=== PATIENT | female | born 1970 | race African-American/Black ===

== ENCOUNTER 2016-07-30 11:45 | Emergency (ER) | payer MEDICAID ==
[~2016-07-30] VITALS: Ht 160 cm; Wt 62.0 kg
[2016-07-30] MEDS ORDERED: MORPHINE SULFATE 4 MG/ML CPJ (NOT FOR IM USE) IV ONE ×2 (14:00→15:30)
[2016-07-30] MEDS ORDERED: ONDANSETRON HCL 4MG/2ML VIAL IV ONE (14:00)
[2016-07-30 15:33] VITALS: BP 170/115
== END 2016-07-30 16:49 | disposition home or self-care (01) ==
LOC: ER 13:46
DX: S49.91XA Unspecified injury of right shoulder and upper arm, initial encounter (principal); S89.91XA Unspecified injury of right lower leg, initial encounter; R51 Headache; I10 Essential (primary) hypertension; F32.9 Major depressive disorder, single episode, unspecified; F12.10 Cannabis abuse, uncomplicated; F17.200 Nicotine dependence, unspecified, uncomplicated; V89.2XXA Person injured in unspecified motor-vehicle accident, traffic, initial encounter; Y93.89 Activity, other specified; Y99.8 Other external cause status; Y92.89 Other specified places as the place of occurrence of the external cause
CPT/HCPCS: 70486; 73030; 73130; 73562; 81025; 96374; 96375; 96376; 99284; J2270; J2405

== ENCOUNTER 2017-06-08 12:43 | Emergency (ER) | payer MEDICAID ==
[~2017-06-08] VITALS: Ht 157.5 cm; Wt 59.0 kg
[2017-06-08] MEDS ORDERED: CYCLOBENZAPRINE 10MG TABLET PO ONE (18:45)
[2017-06-08] MEDS ORDERED: KETOROLAC 60MG/2ML VIAL IM ONE (18:45)
[2017-06-08 18:54] VITALS: BP 129/74
== END 2017-06-08 19:05 | disposition home or self-care (01) ==
LOC: ER 14:29
DX: M25.511 Pain in right shoulder (principal); M54.2 Cervicalgia; M79.1 Myalgia; I10 Essential (primary) hypertension; F32.9 Major depressive disorder, single episode, unspecified; F12.10 Cannabis abuse, uncomplicated
CPT/HCPCS: 81025; 96372; 99283; J1885; Z7610

== ENCOUNTER 2018-02-26 09:24 | Emergency (ER) | payer MEDICAID ==
[~2018-02-26] VITALS: Ht 157.5 cm; Wt 60.0 kg
[2018-02-26] MEDS ORDERED: KETOROLAC 30MG/ML VIAL IM ONE (11:30)
[2018-02-26] MEDS ORDERED: HYDROCODONE/ACETAMINOPHEN 5/325MG TABLET PO ONE (11:30)
[2018-02-26 13:10] VITALS: BP 154/95
== END 2018-02-26 13:11 | disposition home or self-care (01) ==
LOC: ER 09:24
DX: S60.222A Contusion of left hand, initial encounter (principal); S16.1XXA Strain of muscle, fascia and tendon at neck level, initial encounter; R03.0 Elevated blood-pressure reading, without diagnosis of hypertension; V49.49XA Driver injured in collision with other motor vehicles in traffic accident, initial encounter; Y93.89 Activity, other specified; Y92.410 Unspecified street and highway as the place of occurrence of the external cause
CPT/HCPCS: 73130; 96372; 99283; J1885

== ENCOUNTER 2019-02-07 15:06 | Emergency (ER) | payer MEDICAID ==
[~2019-02-07] VITALS: Ht 157.5 cm; Wt 54.0 kg
[2019-02-07 15:28] VITALS: BP 137/92
[2019-02-07] MEDS ORDERED: TETANUS, DIPHTHERIA, PERTUSSIS VAC/PF 0.5ML (>7YR OLD) IM ONE (17:30)
[2019-02-07] MEDS ORDERED: ACETAMINOPHEN WITH CODEINE 300/30MG TABLET PO ONE (17:30)
[2019-02-07] MEDS ORDERED: LIDOCAINE HCL/PF 1% 10 MG/ML 5ML VIAL IJ ONE (17:30)
[2019-02-07] MEDS ORDERED: BACITRACIN ZINC OINT UDPKT TOP ONE (17:30)
== END 2019-02-07 19:30 | disposition left against medical advice (07) ==
LOC: ER 15:06
DX: S01.511A Laceration without foreign body of lip, initial encounter (principal); M54.5 Low back pain; Y04.2XXA Assault by strike against or bumped into by another person, initial encounter; Y93.89 Activity, other specified; Y92.89 Other specified places as the place of occurrence of the external cause; Z23 Encounter for immunization
CPT/HCPCS: 12011; 81025; 90471; 90715; 99283; Z7610

== ENCOUNTER 2020-01-17 19:44 | Emergency (ER) | payer MEDICAID ==
[~2020-01-17] VITALS: Ht 157.5 cm; Wt 71.0 kg
[2020-01-17 20:11] VITALS: BP 190/96
== END 2020-01-17 22:10 | disposition left against medical advice (07) ==
LOC: ER 19:44
DX: Z53.21 Procedure and treatment not carried out due to patient leaving prior to being seen by health care provider (principal)

== ENCOUNTER 2022-03-27 11:35 | Emergency (ER) | payer MEDICAID ==
[~2022-03-27] VITALS: Ht 162.6 cm; Wt 70.0 kg
[2022-03-27] MEDS ORDERED: ONDANSETRON HCL 4MG/2ML INJ IV ONE (13:30)
[2022-03-27] MEDS ORDERED: FAMOTIDINE 20MG/2ML VIAL IV ONE (13:30)
[2022-03-27] MEDS ORDERED: SODIUM CHLORIDE 0.9% 1,000 ML IV ONE ×2 (13:30→16:30)
[2022-03-27] MEDS ORDERED: METOCLOPRAMIDE HCL 10MG/2ML VIAL IV ONE (13:45)
[2022-03-27 13:50] LABS: CHLORIDE 103 mEq/L (98-107)
[2022-03-27 13:51] LABS: BASOPHILS % 0.8 % (0.0-2.0); EOSINOPHILS % 0.1 % (0.0-5.0); HEMATOCRIT. 41.3 % (36.0-48.0); HEMOGLOBIN. 13.8 g/dL (12.0-16.0); LYMPHOCYTES % 14.7 % (20.0-50.0); MEAN CORPUSCULAR HEMOGLOBIN 29.6 pg (28.0-32.0); MEAN CORPUSCULAR VOLUME 88.3 fL (81.0-99.0); NEUTROPHILS % 74.4 % (40.0-76.0); PLATELET 159 x1000/uL (130-400); RED BLOOD CELL COUNT 4.68 mill/uL (4.2-5.4); RED CELL DISTRIBUTION WIDTH 14.2 % (11.6-14.6)
[2022-03-27] MEDS ORDERED: KETOROLAC 30MG/ML VIAL IV NR (16:15)
[2022-03-27 16:59] LABS: CLARITY URINE CLEAR (CLEAR); COLOR URINE YELLOW (YELLOW); KETONES URINE 2+ (NEGATIVE); LEUKOCYTE ESTERASE URINE NEGATIVE (NEGATIVE); NITRITE URINE NEGATIVE (NEGATIVE); OCCULT BLOOD URINE NEGATIVE (NEGATIVE); PROTEIN URINE NEGATIVE (NEGATIVE); SPECIFIC GRAVITY URINE 1.079 (1.005-1.030); UROBILINOGEN URINE 0.2 E.U./dL (0.2-1.0)
[2022-03-27 18:00] VITALS: BP 110/65
== END 2022-03-27 20:00 | disposition home or self-care (01) ==
LOC: ER 11:35
DX: R10.13 Epigastric pain (principal)
CPT/HCPCS: 36415; 71045; 74177; 80053; 81003; 81025; 83605; 83690; 83880; 84484; 85025; 93005; 96361; 96374; 96375; 99285; J1885; J2765; J3490; J7030

== ENCOUNTER 2022-04-13 17:28 | Emergency (ER) | payer MEDICAID, OTHER ==
[~2022-04-13] VITALS: Ht 165.1 cm; Wt 69.0 kg
[2022-04-13 18:12] VITALS: BP 163/91
[2022-04-13] MEDS ORDERED: ONDANSETRON 4MG ODT PO STA (21:30)
[2022-04-13] MEDS ORDERED: VISCOUS LIDOCAINE 2% 15 ML UDC PO STA (21:30)
[2022-04-13] MEDS ORDERED: MAGNESIUM/ALUMINUM HYDROXIDE/SIMETHICONE 30ML UDC PO STA (21:30)
[2022-04-13] MEDS ORDERED: FAMOTIDINE 20MG/2ML VIAL IV STA (21:30)
[2022-04-13] MEDS ORDERED: DICYCLOMINE 10 MG/5 ML ORAL SYR PO STA (21:30)
[2022-04-13 23:04] LABS: BASOPHILS % 0.6 % (0.0-2.0); HEMATOCRIT. 40.5 % (36.0-48.0); HEMOGLOBIN. 13.4 g/dL (12.0-16.0); LYMPHOCYTES % 8.5 % (20.0-50.0); MEAN CORPUSCULAR HEMOGLOBIN 29.6 pg (28.0-32.0); MEAN CORPUSCULAR VOLUME 89.4 fL (81.0-99.0); MEAN PLATELET VOLUME 12.1 fl (7.4-10.4); MONOCYTES % 6.2 % (2.0-8.0); NEUTROPHILS % 84.7 % (40.0-76.0); PLATELET 196 x1000/uL (130-400); RED BLOOD CELL COUNT 4.53 mill/uL (4.2-5.4); RED CELL DISTRIBUTION WIDTH 14.4 % (11.6-14.6)
[2022-04-13 23:09] LABS: CHLORIDE 106 mEq/L (98-107)
[2022-04-13 23:11] LABS: HCG SCREEN NEGATIVE
[2022-04-13] MEDS ORDERED: HALOPERIDOL LACTATE 5MG/ML VIAL IM ONE (23:45)
[2022-04-13] MEDS ORDERED: VISCOUS LIDOCAINE 2% 15 ML UDC PO NR (23:45)
[2022-04-13] MEDS ORDERED: FAMOTIDINE 20MG/2ML VIAL IV NR (23:45)
[2022-04-13] MEDS ORDERED: DICYCLOMINE 10 MG/5 ML ORAL SYR PO NR (23:45)
[2022-04-13] MEDS ORDERED: HALOPERIDOL LACTATE 5MG/ML VIAL IM NR (23:45)
[2022-04-13] MEDS ORDERED: MAGNESIUM/ALUMINUM HYDROXIDE/SIMETHICONE 30ML UDC PO NR (23:45)
[2022-04-13] MEDS ORDERED: ONDANSETRON 4MG ODT PO NR (23:45)
[2022-04-14] MEDS ORDERED: MORPHINE SULFATE 4 MG/ML CPJ (NOT FOR IM USE) IV ONE (01:30)
[2022-04-14] MEDS ORDERED: FAMO-135 MT (01:45)
== END 2022-04-14 02:12 | disposition home or self-care (01) ==
LOC: ER 17:28
DX: K29.70 Gastritis, unspecified, without bleeding (principal); R11.10 Vomiting, unspecified; I10 Essential (primary) hypertension; F12.10 Cannabis abuse, uncomplicated
CPT/HCPCS: 36415; 80053; 83690; 84703; 85025; 96374; 99284; J1630; Q0162